=== PATIENT | male | born 1935 | race Hispanic/Latino ===

== ENCOUNTER 2017-01-14 19:58 | Emergency (ER) | payer MEDICARE, BC ==
[2017-01-14 19:58] VITALS: BMI 25.7
--- NOTE | 2017-01-14 21:07 | ED PDOC ---
Arrival/HPI - General Historian: Patient - History of Present Illness Time/Duration: Other (few days) Symptom Onset: Gradual Symptom Course: Unchanged Activities at Onset: Rest, Light Context: Home - General Chief Complaint: Flu-like Symptoms Time Seen by Provider: 01/14/17 20:17 - History of Present Illness Narrative History of Present Illness (Text): 01/14/17 20:20 Cali Fajardo is a 81 year old male, whose past medical history includes 1st degree AV Block, who presents to the ED complaining of fever and chills for the past few days. Patient also reports associated generalized body aches. Patient denies any chest pain, shortness of breath, nausea, vomiting, diarrhea, urinary symptoms, back pain, neck pain, headache, dizziness, or any other complaints. ( Buddy Ceron) Past Medical History - Provider Review Nursing Documentation Reviewed: Yes - Past History Past History: Non-Contributing (patient has first degree AV block and straight caths at home due to urinary retention) - Infectious Disease Hx of Infectious Diseases: None - Tetanus Immunization Tetanus Immunization: Unknown - Cardiac Hx Cardiac Disorders: Yes (1st degree AV block asymptomatic ) - Pulmonary Hx Respiratory Disorders: No - Neurological Hx Neurological Disorder: No - HEENT Hx HEENT Disorder: No - Renal Hx Renal Disorder: No - Endocrine/Metabolic Hx Endocrine Disorders: No - Hematological/Oncological Hx Blood Disorders: No - Integumentary Hx Dermatological Disorder: No - Musculoskeletal/Rheumatological Hx Musculoskeletal Disorders: No - Gastrointestinal Hx Gastrointestinal Disorders: No - Genitourinary/Gynecological Hx Genitourinary Disorders: Yes Other/Comment: patient self catherizes. states he urinates only through catherization due to having a large bladder. - Psychiatric Hx Psychophysiologic Disorder: No Hx Substance Use: No - Surgical History Hx Inguinal Hernia Repair: Yes - Anesthesia Hx Anesthesia: No - Suicidal Assessment Feels Threatened In Home Enviroment: No Family/Social History - Physician Review Nursing Documentation Reviewed: Yes Family/Social History: No Known Family HX Smoking Status: Former Smoker Hx Alcohol Use: Yes (SOCIAL) Hx Substance Use: No Hx Substance Use Treatment: No Allergies/Home Meds Allergies/Adverse Reactions: Allergies No Known Allergies Allergy (Verified 07/28/16 19:11) Home Medications: Home Meds Medication Instructions Recorded Confirmed Aspirin [Adult Low Dose Aspirin EC] 81 mg PO DAILY 01/14/17 01/14/17 Azithromycin [Zithromax] 250 mg PO DAILY 01/14/17 01/14/17 Levocetirizine Dihydrochloride 5 mg PO HS 01/14/17 01/14/17 [Xyzal] Review of Systems - Physician Review All systems were reviewed & negative as marked: Yes - Review of Systems Constitutional: Fevers, Other (+chills) Eyes: Normal ENT: Normal Respiratory: Normal. absent: SOB, Cough Cardiovascular: Normal. absent: Chest Pain Gastrointestinal: Normal. absent: Abdominal Pain, Diarrhea, Nausea, Vomiting Genitourinary Male: Normal. absent: Dysuria, Frequency, Hematuria, Urinary Output Changes Musculoskeletal: Other (+generalized body aches). absent: Back Pain, Neck Pain Skin: Normal. absent: Rash Neurological: Normal. absent: Headache, Dizziness Endocrine: Normal Hemo/Lymphatic: Normal Psychiatric: Normal Physical Exam Vital Signs Reviewed: Yes Temperature: Afebrile Blood Pressure: Normal Pulse: Regular Respiratory Rate: Normal Appearance: Positive for: Well-Appearing, Non-Toxic, Comfortable Pain Distress: None Mental Status: Positive for: Alert and Oriented X 3 - Systems Exam Head: Present: Atraumatic, Normocephalic Pupils: Present: PERRL Extroacular Muscles: Present: EOMI Conjunctiva: Present: Normal Mouth: Present: Moist Mucous Membranes Neck: Present: Normal Range of Motion Respiratory/Chest: Present: Clear to Auscultation, Good Air Exchange. No: Respiratory Distress, Accessory Muscle Use Cardiovascular: Present: Regular Rate and Rhythm, Normal S1, S2. No: Murmurs Abdomen: Present: Normal Bowel Sounds. No: Tenderness, Distention, Peritoneal Signs Back: Present: Normal Inspection Upper Extremity: Present: Normal Inspection. No: Cyanosis, Edema Lower Extremity: Present: Normal Inspection. No: Edema Neurological: Present: GCS=15, CN II-XII Intact, Speech Normal Skin: Present: Warm, Dry, Normal Color. 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 I also attempted to call the next of kin which is the son Mamadou Fajardo, no one answer again and I advised for urgent call back as this is serious findings. I will give the blood culture result critical finds and send out as certified mail which it will prepare by ER sales administrator aleena Krishnan 01/17/17 15:06 Pt. call back and i discussed about the blood culture, stated that he was back in the ER yesterday after the phone call and was clear to discharge home. He is feeling well now, on antibiotic, no fever or chills, eating and drinking well , currently following up with Dr. balderas and specialists as he was told yesterday. (Bruce Tolentino) 01/14/17 20:20 Impression: 81 year old male complaining of fever, chills, and body aches for the past few days. Differential Diagnosis include but are not limited to: viral syndrome Plan: -- EKG -- Chest X-ray -- Labs, VBG, blood cultures, rapid influenza -- Urinalysis, urine cultures -- Reassess and disposition Prior Visits: Notes and results from previous visits were reviewed. On 07/28/2016, pt was seen in the ED for generalized malaise, fever, and chills. Pt was d/c home. Progress Notes: Reviewed EKG, NSR at 79 bpm. Non-specific ST/T wave changes. 01/14/17 21:54 Reviewed radiology, Chest X-ray shows no active disease. 01/14/17 23:39 Reviewed labs, negative influenza. 01/15/17 00:30 On re-evaluation, the patient feels better and is in no acute distress. I have discussed the results and plan with the patient, who expresses understanding. Patient in agreement with plan to discharged home. Patient is stable for discharge. Patient was instructed to follow up with physician/clinic in 1-2 days or return if symptoms worsen or new concerning symptoms arise. (Buddy Ceron) - Lab Interpretations Microbiology Results: Microbiology Results 01/14/17 20:50 Blood Blood Culture - Preliminary Staphylococcus Sp Coag Neg 01/14/17 20:50 Blood Gram Stain - Final 01/14/17 21:10 Blood S.aureus & Coag-Neg Staph PNA FISH - Final 01/14/17 21:10 Blood Blood Culture - Preliminary Staphylococcus Sp Coag Neg 01/14/17 21:10 Blood Gram Stain - Final 01/14/17 21:00 Urine,Catheterized Urine Culture - Final No Growth (<1,000 CFU/ML) Lab Results: 01/14/17 21:00 01/14/17 21:00 Lab Results 01/14/17 21:20: Influenza Typ A,B (EIA) Negative for flu a/b 01/14/17 21:00: WBC 9.1, RBC 4.73, Hgb 15.2, Hct 43.6, MCV 92.2, MCH 32.1, MCHC 34.9, RDW 14.0, Plt Count 124, MPV 10.1, Gran % 84.5 H, Lymph % (Auto) 10.2 L, [place] % (Auto) 5.0, Eos % (Auto) 0.2 L, Baso % (Auto) 0.1, Gran # 7.71 H, Lymph # 0.9 L, [place] # 0.5, Eos # 0.0, Baso # 0.01, pO2 23 L, VBG pH 7.40, VBG pCO2 47.0, VBG HCO3 29.1 H, VBG Total CO2 30.5 H, VBG O2 Sat (Calc) 42.6, VBG Base Excess 3.5 H, VBG Potassium 4.7, Glucose 118 H, Lactate 1.2, FiO2 21.0, Sodium 133.0, Potassium 4.6, Chloride 99.0, Carbon Dioxide 26, Anion Gap 16, BUN 16, Creatinine 0.9, Est GFR ( Amer) > 60, Est GFR (Non-Af Amer) > 60, Random Glucose 112 H, Calcium 9.1, Phosphorus 2.1 L, Magnesium 1.9, Total Bilirubin 1.9 H, AST 31, ALT 20, Alkaline Phosphatase 70, Total Protein 7.3, Albumin 4.0, Globulin 3.3, Albumin/Globulin Ratio 1.2, Venous Blood Potassium 4.7 01/14/17 20:23: Urine Color Yellow, Urine Appearance Clear, Urine pH 6.0, Ur Specific [place] 1.015, Urine Protein Trace H, Urine Glucose (UA) Negative, Urine Ketones Trace H, Urine Blood Negative, Urine Nitrate Negative, Urine Bilirubin Negative, Urine Urobilinogen 0.2, Ur Leukocyte Esterase Negative, Urine RBC 0 - 2, Urine WBC 0 - 2, Ur Epithelial Cells None, Urine Bacteria Few - RAD Interpretation Narrative RAD Interpretations (Text): Chest X-ray shows no active disease. (Buddy Ceron) Radiology Orders: 01/14/17 20:23 CHEST PORTABLE [RAD] Stat - Medication Orders Current Medication Orders: Discontinued Medications Acetaminophen (Tylenol 325mg Tab) 650 mg PO STAT STA Stop: 01/14/17 23:03 Last Admin: 01/14/17 23:06 Dose: 650 MG MAR Pain/Vitals Document 01/14/17 23:06 RD (Rec: 01/14/17 23:06 RD [id number]) Pain Reassessment Is This A Pain ReAssessment? No Sleep Is patient sleeping during reassessment? No Presence of Pain Presence of Pain No Vitals Temperature (97.6 F-99.6 F) 102.1 F Temperature Source Oral Acetaminophen (Tylenol 325mg Tab) Confirm Administered Dose 650 mg .ROUTE .STK- MED ONE Stop: 01/14/17 23:07 Last Admin: 01/14/17 23:07 Dose: - Scribe Statement The provider has reviewed the documentation as recorded by the Scribe - Scribe Statement Belgica Enriquez (Buddy Ceron) Provider Attestation: All medical record entries made by the Scribe were at my direction and personally dictated by me. I have reviewed the chart and agree that the record accurately reflects my personal performance of the history, physical exam, medical decision making, and the department course for this patient. I have also personally directed, reviewed, and agree with the discharge instructions and disposition. (Buddy Ceron) Disposition/Present on Arrival - Present on Arrival Any Indicators Present on Arrival: No History of DVT/PE: No History of Uncontrolled Diabetes: No Urinary Catheter: No History of Decub. Ulcer: No History Surgical Site Infection Following: None - Disposition Have Diagnosis and Disposition been Completed?: Yes Disposition Time: 00:33 - Disposition Diagnosis: Viral syndrome Disposition: HOME/ ROUTINE Condition: GOOD Discharge Instructions (ExitCare): Viral Syndrome (ED)
[2017-01-14 21:24] LABS: ADD MANUAL DIFF? NO
[2017-01-14 21:28] LABS: VENOUS BLOOD GAS BASE EXCESS 3.5 mmol/L (0.0-2.0)
[2017-01-14 21:55] LABS: URINE BILIRUBIN NEGATIVE (NEGATIVE); URINE BLOOD NEGATIVE (NEGATIVE); URINE GLUCOSE (UA) NEGATIVE (NEGATIVE); URINE KETONE TRACE mg/dL (NEGATIVE); URINE LEUKOCYTE ESTERASE NEGATIVE Leu/uL (NEGATIVE); URINE PROTEIN TRACE mg/dL (<30 mg/dL); URINE UROBILINOGEN 0.2 E.U./dL (<1 E.U./dL)
[2017-01-14 22:01] LABS: URINE APPEARANCE CLEAR (CLEAR); URINE COLOR YELLOW (YELLOW)
[2017-01-14 22:03] LABS: BASO # 0.01 K/mm3 (0.0-2.0); BASO % 0.1 % (0.0-3.0); EOS % 0.2 % (1.5-5.0); GRAN # 7.71 (1.4-6.5); GRAN % 84.5 % (50.0-68.0); HEMATOCRIT 43.6 % (42.0-52.0); LYMPH # 0.9 (1.2-3.4); LYMPH % 10.2 % (22.0-35.0); MEAN CELL VOLUME 92.2 fL (80.0-105.0); MEAN CORPUSCULAR HEMOGLOBIN 32.1 pg (25.0-35.0); MEAN CORPUSCULAR HGB CONC 34.9 g/dl (31.0-37.0); MEAN PLATELET VOLUME 10.1 fl (7.0-11.0); MONO # 0.5 (0.1-0.6); PLATELET COUNT 124 10^3/uL (120.0-450.0); WHITE BLOOD COUNT 9.1 10^3/ul (4.5-11.0)
[2017-01-14 22:06] LABS: URINE BACTERIA FEW (NEG); URINE RBC 0 - 2 /hpf (0-2); URINE WBC 0 - 2 /hpf (0-6)
[2017-01-14 22:18] LABS: ALB/GLOB RATIO 1.2 (1.1-1.8); ALKALINE PHOSPHATASE 70 U/L (38-133); ALT/SGPT 20 U/L (7-56); AST/SGOT 31 U/L (15-59); BILIRUBIN,TOTAL 1.9 mg/dL (0.2-1.3); BLOOD UREA NITROGEN 16 mg/dL (7-21); CALCIUM 9.1 mg/dL (8.4-10.5); CARBON DIOXIDE 26 mmol/L (21-33); CHLORIDE 95 mmol/L (98-107); GFR AFRICAN-AMERICAN > 60; GLUCOSE,RANDOM 112 mg/dL (70-110); MAGNESIUM 1.9 mg/dL (1.7-2.2); PHOSPHOROUS 2.1 mg/dL (2.5-4.5); POTASSIUM 4.6 mmol/L (3.6-5.0); SODIUM 132 mmol/L (132-148); TOTAL PROTEIN 7.3 g/dL (5.8-8.3)
[2017-01-14 23:49] VITALS: RESP 17; TEMP 99.8
[2017-01-15 00:50] VITALS: BP 107/57; PULSE 78; O2SAT 94
--- NOTE | 2017-01-15 10:06 | CARD ---
APPROVED REPORT EKG Measurement Heart [id number] <Conclusion> Normal sinus rhythm APCs, new NSSTW changes
--- NOTE | 2017-01-15 12:02 | RAD ---
HISTORY: Sepsis Patient COMPARISON: Comparison is made to the previous study dated 07/28/2016 FINDINGS: LUNGS: Mild hyperinflation of the lungs is again noted. No evidence of new infiltrate or consolidation in the lungs. PLEURA: No significant pleural effusion identified, no pneumothorax apparent. CARDIOVASCULAR: Normal. OSSEOUS STRUCTURES: No significant abnormalities. VISUALIZED UPPER ABDOMEN: Normal. OTHER FINDINGS: None. IMPRESSION: No significant interval change compared to the previous exam.
== END 2017-01-15 00:48 | disposition home or self-care (01) ==
LOC: ED 19:58
DX: B34.9 Viral infection, unspecified (principal); I44.0 Atrioventricular block, first degree

== ENCOUNTER 2017-01-16 16:39 | Emergency (ER) | payer MEDICARE, BC ==
[2017-01-16 16:40] VITALS: BMI 25.7
[2017-01-16 17:02] VITALS: BP 109/75; RESP 18
[2017-01-16] MEDS ORDERED: Sodium Chloride 0.9% 1,000 ML IV STA (17:07)
[2017-01-16 17:10] VITALS: TEMP 99.1
[2017-01-16 17:12] LABS: ADD MANUAL DIFF? NO
[2017-01-16 17:19] LABS: BASO # 0.02 K/mm3 (0.0-2.0); BASO % 0.2 % (0.0-3.0); EOS # 0.1 (0.0-0.7); EOS % 1.1 % (1.5-5.0); GRAN # 5.91 (1.4-6.5); GRAN % 70.7 % (50.0-68.0); HEMATOCRIT 42.2 % (42.0-52.0); LYMPH # 1.8 (1.2-3.4); LYMPH % 21.7 % (22.0-35.0); MEAN CELL VOLUME 91.1 fL (80.0-105.0); MEAN CORPUSCULAR HEMOGLOBIN 31.5 pg (25.0-35.0); MEAN CORPUSCULAR HGB CONC 34.6 g/dl (31.0-37.0); MEAN PLATELET VOLUME 9.9 fl (7.0-11.0); MONO # 0.5 (0.1-0.6); MONO % 6.3 % (1.0-6.0); PLATELET COUNT 155 10^3/uL (120.0-450.0); WHITE BLOOD COUNT 8.4 10^3/ul (4.5-11.0)
[2017-01-16 17:30] LABS: ALB/GLOB RATIO 1.3 (1.1-1.8); ALKALINE PHOSPHATASE 68 U/L (38-133); ALT/SGPT 24 U/L (7-56); AST/SGOT 44 U/L (15-59); BILIRUBIN,TOTAL 1.5 mg/dL (0.2-1.3); BLOOD UREA NITROGEN 14 mg/dL (7-21); CALCIUM 8.8 mg/dL (8.4-10.5); CARBON DIOXIDE 24 mmol/L (21-33); CHLORIDE 98 mmol/L (98-107); GFR AFRICAN-AMERICAN > 60; GLUCOSE,RANDOM 164 mg/dL (70-110); MAGNESIUM 2.1 mg/dL (1.7-2.2); PHOSPHOROUS 2.1 mg/dL (2.5-4.5); POTASSIUM 3.5 mmol/L (3.6-5.0); SODIUM 133 mmol/L (132-148); TOTAL PROTEIN 7.2 g/dL (5.8-8.3)
--- NOTE | 2017-01-16 17:30 | ED PDOC ---
Arrival/HPI - General Chief Complaint: Palpitations Time Seen by Provider: 01/16/17 16:49 Historian: Patient - Critical Care Critical Care Minutes: 30 minutes - History of Present Illness Narrative History of Present Illness (Text): 01/16/17 17:21 81 yo male with no PMHx, presents to the ED from Dr. Neely office because of palpitations and fast heart rate. He states he had a cold since 5 days ago but got better after starting antibiotics that were prescribed to him. He's had a cough since that is not productive but he feels the congestion. He had a fever two days ago. He had no further complaints. He states he self catherizes for his urine and he's had no recent issues with this. He went to Dr. Neely' s office today just for a follow up but not because he wasn't feeling well. PMD: Dr. 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) - Infectious Disease Hx of Infectious Diseases: None - Tetanus Immunization Tetanus Immunization: Unknown - Cardiac Hx Cardiac Disorders: Yes (1st degree AV block asymptomatic ) - Pulmonary Hx Respiratory Disorders: No - Neurological Hx Neurological Disorder: No - HEENT Hx HEENT Disorder: No - Renal Hx Renal Disorder: No - Endocrine/Metabolic Hx Endocrine Disorders: No - Hematological/Oncological Hx Blood Disorders: No - Integumentary Hx Dermatological Disorder: No - Musculoskeletal/Rheumatological Hx Musculoskeletal Disorders: No - Gastrointestinal Hx Gastrointestinal Disorders: No - Genitourinary/Gynecological Hx Genitourinary Disorders: Yes Other/Comment: patient self catherizes. states he urinates only through catherization due to having a large bladder. - Psychiatric Hx Psychophysiologic Disorder: No Hx Substance Use: No - Surgical History Hx Inguinal Hernia Repair: Yes - Anesthesia Hx Anesthesia: No Hx Anesthesia Reactions: No Hx Malignant Hyperthermia: No - Suicidal Assessment Feels Threatened In Home Enviroment: No Family/Social History - Physician Review Nursing Documentation Reviewed: Yes Family/Social History: No Known Family HX Smoking Status: Former Smoker Hx Alcohol Use: Yes (SOCIAL) Hx Substance Use: No Hx Substance Use Treatment: No Allergies/Home Meds Allergies/Adverse Reactions: Allergies No Known Allergies Allergy (Verified 07/28/16 19:11) Home Medications: Home Meds Medication Instructions Recorded Confirmed Aspirin [Adult Low Dose Aspirin EC] 81 mg PO DAILY 01/14/17 01/14/17 Azithromycin [Zithromax] 250 mg PO DAILY 01/14/17 01/14/17 Levocetirizine Dihydrochloride 5 mg PO HS 01/14/17 01/14/17 [Xyzal] Review of Systems - Physician Review All systems were reviewed & negative as marked: Yes - Review of Systems Constitutional: Normal Eyes: Normal ENT: Normal Respiratory: Cough. absent: SOB, Sputum, Wheezing Cardiovascular: Palpitations. absent: Chest Pain, Edema, Calf Pain, COPE, Orthopnea, Syncope Gastrointestinal: Normal Genitourinary Male: Normal Musculoskeletal: Normal Skin: Normal Neurological: Normal Endocrine: Normal Hemo/Lymphatic: Normal Psychiatric: Normal Physical Exam Vital Signs Reviewed: Yes Vital Signs Temp Pulse Resp BP Pulse Ox 01/16/17 17:42 67 18 109/75 95 01/16/17 17:09 99.1 F 01/16/17 16:51 98.1 F 149 H 18 109/75 96 Temperature: Afebrile Blood Pressure: Normal Pulse: Tachycardic Respiratory Rate: Normal Appearance: Positive for: Well-Appearing, Non-Toxic, Comfortable Pain Distress: None Mental Status: Positive for: Alert and Oriented X 3 - Systems Exam Head: Present: Atraumatic, Normocephalic Pupils: Present: PERRL Extroacular Muscles: Present: EOMI Conjunctiva: Present: Normal Mouth: Present: Moist Mucous Membranes Neck: Present: Normal Range of Motion Respiratory/Chest: Present: Clear to Auscultation, Good Air Exchange. No: Respiratory Distress, Accessory Muscle Use Cardiovascular: Present: Regular Rate and Rhythm, Normal S1, S2. No: Murmurs Abdomen: Present: Normal Bowel Sounds. No: Tenderness, Distention, Peritoneal Signs Back: Present: Normal Inspection Upper Extremity: Present: Normal Inspection. No: Cyanosis, Edema Lower Extremity: Present: Normal Inspection. No: Edema Neurological: Present: GCS=15, CN II-XII Intact, Speech Normal Skin: Present: Warm, Dry, Normal Color. No: Rashes Psychiatric: Present: Alert, Oriented x 3, Normal Insight, Normal Concentration Medical Decision Making ED Course and Treatment: 01/16/17 17:54 81 yo male with palpitations and fast heart rate; cough r/o PNA r/o Sepsis -- Labs -- CXR, EKG -- IVF -- HR improved to 80's after NS 1 L bolus 01/16/17 18:58 Patient continues to have no symptoms but the cough. CXR negative. Pulse ox 95% on RA. EKG repeat is NSR at [address] elevations, nl intervals Discussed case with Dr. Neely. If troponin negative then patient can go home on Levaquin and f/u with him as an outpatient. Signed out to Dr. Hernandez to f/u troponin, reevaluate and disposition. - Lab Interpretations Lab Results: 01/16/17 16:56 01/16/17 16:56 Lab Results 01/16/17 17:30: pO2 148 H, VBG pH 7.46 H, VBG pCO2 34.0 L, VBG HCO3 24.2, VBG Total CO2 25.2, VBG O2 Sat (Calc) 99.5 H, VBG Base Excess 0.8, VBG Potassium 3.5 L, Sodium 135.0, Chloride 101.0, Glucose 165 H, Lactate 1.6, FiO2 21.0, Venous Blood Potassium 3.5 L 01/16/17 16:56: WBC 8.4, RBC 4.63, Hgb 14.6, Hct 42.2, MCV 91.1, MCH 31.5, MCHC 34.6, RDW 14.0, Plt Count 155, MPV 9.9, Gran % 70.7 H, Lymph % (Auto) 21.7 L, [place] % (Auto) 6.3 H, Eos % (Auto) 1.1 L, Baso % (Auto) 0.2, Gran # 5.91, Lymph # 1.8, [place] # 0.5, Eos # 0.1, Baso # 0.02, PT 10.9, INR 1.01, APTT 31.7 H, Sodium 133, Chloride 98, Potassium 3.5 L, Carbon Dioxide 24, Anion Gap 15, BUN 14, Creatinine 0.8, Est GFR ( Amer) > 60, Est GFR (Non-Af Amer) > 60, Random Glucose 164 H, Calcium 8.8, Phosphorus 2.1 L, Magnesium 2.1, Total Bilirubin 1.5 H, AST 44, ALT 24, Alkaline Phosphatase 68, Total Protein 7.2, Albumin 4.0, Globulin 3.2, Albumin/Globulin Ratio 1.3 - RAD Interpretation Radiology Orders: 01/16/17 17:09 CHEST PORTABLE [RAD] Stat - EKG Interpretation Interpreted by ED Physician: Yes (Sinus Tachy at 142) Type: 12 lead EKG - Medication Orders Current Medication Orders: Discontinued Medications Sodium Chloride (Sodium Chloride 0.9%) 1,000 mls @ 999 mls/hr IV .Q1H1M STA Stop: 01/16/17 18:07 Last Admin: 01/16/17 17:14 Dose: 999 MLS/HR eMAR Start Stop Document 01/16/17 17:14 SE (Rec: 01/16/17 17:14 SE [id number]) Intravenous Solution Start Date 01/16/17 Start Time 17:14 Levofloxacin (Levaquin) 750 mg PO STAT STA Stop: 01/16/17 18:58 Potassium Chloride (K-Dur 20 Meq Er Tab) 40 meq PO STAT STA Stop: 01/16/17 17:32 Last Admin: 01/16/17 18:16 Dose: 40 MEQ Disposition/Present on Arrival - Present on Arrival Any Indicators Present on Arrival: No History of DVT/PE: No History of Uncontrolled Diabetes: No Urinary Catheter: No History of Decub. Ulcer: No History Surgical Site Infection Following: None - Disposition Have Diagnosis and Disposition been Completed?: Yes Diagnosis: Tachycardia Disposition Time: 19:08 Condition: FAIR
[2017-01-16 17:31] LABS: INR 1.01 (0.93-1.08); PARTIAL THROMBOPLASTIN TIME 31.7 Seconds (23.7-30.8)
[2017-01-16] MEDS ORDERED: Potassium Chloride 20 mEq ER Tab PO STA (17:31)
[2017-01-16 17:35] LABS: VENOUS BLOOD GAS BASE EXCESS 0.8 mmol/L (0.0-2.0); VENOUS BLOOD PH 7.46 (7.32-7.43)
[2017-01-16 17:43] VITALS: PULSE 67; O2SAT 95
--- NOTE | 2017-01-16 17:58 | CARD ---
APPROVED REPORT EKG Measurement Heart [id number] [id number] <Conclusion> Sinus tachycardia Nonspecific ST abnormality Abnormal ECG
--- NOTE | 2017-01-16 18:55 | RAD ---
HISTORY: Sepsis Patient COMPARISON: 07/28/2016 FINDINGS: LUNGS: The lungs are well inflated and clear. PLEURA: No significant pleural effusion identified, no pneumothorax apparent. CARDIOVASCULAR: Normal. OSSEOUS STRUCTURES: No significant abnormalities. VISUALIZED UPPER ABDOMEN: Normal. OTHER FINDINGS: None. IMPRESSION: No active pulmonary disease.
[2017-01-16] MEDS ORDERED: levoFLOXacin 750 MG TAB PO STA (18:57)
--- NOTE | 2017-01-16 19:30 | ED PDOC ---
Physical Exam Vital Signs Reviewed: Yes Vital Signs Temp Pulse Resp BP Pulse Ox 01/16/17 17:42 67 18 109/75 95 01/16/17 17:09 99.1 F 72 19 137/75 98 01/16/17 16:51 98.1 F 149 H 18 109/75 96 Temperature: Afebrile Blood Pressure: Normal Pulse: Regular Respiratory Rate: Normal Appearance: Positive for: Well-Appearing, Non-Toxic, Comfortable Pain Distress: None Mental Status: Positive for: Alert and Oriented X 3 Medical Decision Making ED Course and Treatment: 01/16/17 19:00 Case signed out to me by Dr. Padilla, pending troponin, reevaluation and disposition. The patient is a 81 year old female who was sent into the emergency department from Dr. Neely office for chest palpitations and a fast heart rate. Physical examination show no acute findings. Patient Chest X-ray was negative and pulse oxygen at 95%. EKG showed NSR at [address] elevation and normal intervals.Pt.had been experiencing non productive cough. Case was discussed with Dr. eNely by Dr. Padilla, who stated if patient troponin is negative to discharge patient home on [facility] and he will follow up with the patient in his office. 01/16/17 19:43 Patient's Troponin is negative. On re-evaluation, the patient feels better and is in no acute distress. I have discussed the results and plan with the patient , who expresses understanding. Patient in agreement with plan to discharged home. Patient is stable for discharge. Patient was instructed to follow up with Dr. Neely in 1-2 days or return if symptoms worsen or new concerning symptoms arise. - Lab Interpretations Lab Results: 01/16/17 16:56 01/16/17 16:56 Lab Results 01/16/17 19:21: Urine Color Yellow, Urine Appearance Clear, Urine pH 6.0, Ur Specific [place] 1.010, Urine Protein Negative, Urine Glucose (UA) Negative, Urine Ketones Negative, Urine Blood Trace-lysed H, Urine Nitrate Negative, Urine Bilirubin Negative, Urine Urobilinogen 0.2, Ur Leukocyte Esterase Negative , Urine RBC 0 - 2, Urine WBC 0 - 2, Ur Epithelial Cells 0 - 2, Urine Bacteria Small 01/16/17 17:30: pO2 148 H, VBG pH 7.46 H, VBG pCO2 34.0 L, VBG HCO3 24.2, VBG Total CO2 25.2, VBG O2 Sat (Calc) 99.5 H, VBG Base Excess 0.8, VBG Potassium 3.5 L, Sodium 135.0, Chloride 101.0, Glucose 165 H, Lactate 1.6, FiO2 21.0, Venous Blood Potassium 3.5 L 01/16/17 16:56: WBC 8.4, RBC 4.63, Hgb 14.6, Hct 42.2, MCV 91.1, MCH 31.5, MCHC 34.6, RDW 14.0, Plt Count 155, MPV 9.9, Gran % 70.7 H, Lymph % (Auto) 21.7 L, [place] % (Auto) 6.3 H, Eos % (Auto) 1.1 L, Baso % (Auto) 0.2, Gran # 5.91, Lymph # 1.8, [place] # 0.5, Eos # 0.1, Baso # 0.02, PT 10.9, INR 1.01, APTT 31.7 H, Sodium 133, Chloride 98, Potassium 3.5 L, Carbon Dioxide 24, Anion Gap 15, BUN 14, Creatinine 0.8, Est GFR ( Amer) > 60, Est GFR (Non-Af Amer) > 60, Random Glucose 164 H, Calcium 8.8, Phosphorus 2.1 L, Magnesium 2.1, Total Bilirubin 1.5 H, AST 44, ALT 24, Alkaline Phosphatase 68, Troponin I < 0.01, Total Protein 7.2, Albumin 4.0, Globulin 3.2, Albumin/Globulin Ratio 1.3 I have reviewed the lab results: Yes - RAD Interpretation Radiology Orders: 01/16/17 17:09 CHEST PORTABLE [RAD] Stat - Medication Orders Current Medication Orders: Discontinued Medications Sodium Chloride (Sodium Chloride 0.9%) 1,000 mls @ 999 mls/hr IV .Q1H1M STA Stop: 01/16/17 18:07 Last Admin: 01/16/17 17:14 Dose: 999 MLS/HR eMAR Start Stop Document 01/16/17 17:14 SE (Rec: 01/16/17 17:14 [id number]) Intravenous Solution Start Date 01/16/17 Start Time 17:14 Levofloxacin (Levaquin) 750 mg PO STAT STA Stop: 01/16/17 18:58 Last Admin: 01/16/17 19:19 Dose: 750 MG Potassium Chloride (K-Dur 20 Meq Er Tab) 40 meq PO STAT STA Stop: 01/16/17 17:32 Last Admin: 01/16/17 18:16 Dose: 40 MEQ - Scribe Statement The provider has reviewed the documentation as recorded by the Scribe Mya Luis Provider Scribe Attestation: All medical record entries made by the Scribe were at my direction and personally dictated by me. I have reviewed the chart and agree that the record accurately reflects my personal performance of the history, physical exam, medical decision making, and the department course for this patient. I have also personally directed, reviewed, and agree with the discharge instructions and disposition. Disposition/Present on Arrival - Present on Arrival Any Indicators Present on Arrival: No History of DVT/PE: No History of Uncontrolled Diabetes: No Urinary Catheter: No History of Decub. Ulcer: No History Surgical Site Infection Following: None - Disposition Have Diagnosis and Disposition been Completed?: Yes Diagnosis: Bronchitis Disposition: HOME/ ROUTINE Disposition Time: 20:31 Patient Plan: Discharge Patient Problems: Current Active Problems Problem Status Diagnosed Tachycardia Acute Condition: GOOD Discharge Instructions (ExitCare): Acute Bronchitis (ED) Additional Instructions: Take meds as prescribed/follow up with this week.Any change/ worsening symptoms return to the emergency room. Prescriptions: Levofloxacin [Levaquin] 500 mg PO DAILY #7 tablet Referrals: Enrico Neely MD [Primary Care Provider] - Follow up with primary
[2017-01-16 20:00] LABS: URINE APPEARANCE CLEAR (CLEAR); URINE BILIRUBIN NEGATIVE (NEGATIVE); URINE BLOOD TRACE-LYSED (NEGATIVE); URINE COLOR YELLOW (YELLOW); URINE GLUCOSE (UA) NEGATIVE (NEGATIVE); URINE KETONE NEGATIVE (NEGATIVE); URINE LEUKOCYTE ESTERASE NEGATIVE Leu/uL (NEGATIVE); URINE PROTEIN NEGATIVE mg/dL (<30 mg/dL); URINE UROBILINOGEN 0.2 E.U./dL (<1 E.U./dL)
[2017-01-16 20:12] LABS: URINE BACTERIA SMALL (NEG); URINE EPITHELIAL CELLS 0 - 2 /hpf (0-5); URINE RBC 0 - 2 /hpf (0-2); URINE WBC 0 - 2 /hpf (0-6)
--- NOTE | 2017-01-17 20:10 | CARD ---
APPROVED REPORT EKG Measurement Heart [id number] <Conclusion> Normal sinus rhythm Normal ECG
== END 2017-01-16 20:43 | disposition home or self-care (01) ==
LOC: ED 16:39
DX: R00.0 Tachycardia, unspecified (principal); J40 Bronchitis, not specified as acute or chronic; Z87.891 Personal history of nicotine dependence
CPT/HCPCS: 71010; 80053; 81001; 82803; 83735; 84100; 84484; 85025; 85610; 85730; 87040; 87086; 93005; 99284; J7040

== ENCOUNTER 2018-01-07 23:41 | Emergency (ER) | payer MEDICARE, BC ==
[2018-01-07 23:42] VITALS: BMI 25.7
--- NOTE | 2018-01-08 01:24 | ED PDOC ---
Arrival/HPI - General Chief Complaint: Medical Clearance Time Seen by Provider: 01/08/18 00:51 Historian: Patient - History of Present Illness Narrative History of Present Illness (Text): 01/08/18 01:17 82 year old male, whose past medical history includes cervical herniated discs and hypertension, presents to the emergency department complaining of transient brief paresthesia that occurred this afternoon. He describes it as a tingling sensation to the left upper arm. Patient states he is currently asymptomatic. Patient states he felt fine otherwise. Patient denies any chest pain, any history of trauma, any history of exertional symptoms, numbness, fever, chills, chest pain, shortness of breath, nausea, vomiting, diarrhea, urinary symptoms, back pain, neck pain, headache, dizziness, or any other complaints. 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) - Infectious Disease Hx of Infectious Diseases: None - Tetanus Immunization Tetanus Immunization: Unknown - Cardiac Hx Cardiac Disorders: Yes (1st degree AV block asymptomatic ) - Pulmonary Hx Respiratory Disorders: No - Neurological Hx Neurological Disorder: No - HEENT Hx HEENT Disorder: No - Renal Hx Renal Disorder: No Other/Comment: pt has large bladder/self catheterizes - Endocrine/Metabolic Hx Endocrine Disorders: No - Hematological/Oncological Hx Blood Disorders: No - Integumentary Hx Dermatological Disorder: No - Musculoskeletal/Rheumatological Hx Musculoskeletal Disorders: No - Gastrointestinal Hx Gastrointestinal Disorders: No - Genitourinary/Gynecological Hx Genitourinary Disorders: Yes Other/Comment: patient self catherizes. states he urinates only through catherization due to having a large bladder. - Psychiatric Hx Psychophysiologic Disorder: No Hx Substance Use: No - Surgical History Hx Orthopedic Surgery: Yes (knee) - Anesthesia Hx Anesthesia: No - Suicidal Assessment Feels Threatened In Home Enviroment: No Family/Social History - Physician Review Nursing Documentation Reviewed: Yes Family/Social History: No Known Family HX Smoking Status: Former Smoker Hx Alcohol Use: Yes (SOCIAL) Frequency of alcohol use: Socially Hx Substance Use: No Hx Substance Use Treatment: No Allergies/Home Meds Allergies/Adverse Reactions: Allergies No Known Allergies Allergy (Verified 03/13/18 01:11) Home Medications: Home Meds Medication Instructions Recorded Confirmed Aspirin [Adult Low Dose Aspirin EC] 81 mg PO DAILY 01/14/17 01/08/18 Review of Systems - Physician Review All systems were reviewed & negative as marked: Yes - Review of Systems Constitutional: absent: Fevers, Other (Chills) Respiratory: absent: SOB Cardiovascular: absent: Chest Pain Gastrointestinal: absent: Diarrhea, Nausea, Vomiting Genitourinary Male: absent: Dysuria, Frequency, Hematuria Musculoskeletal: absent: Back Pain, Neck Pain Neurological: Other (brief paresthesia ). absent: Headache, Dizziness Physical Exam Vital Signs Reviewed: Yes Vital Signs Temp Pulse Resp BP Pulse Ox 01/08/18 03:07 98.5 F 61 18 137/79 98 01/08/18 01:07 98.8 F Temperature: Afebrile Blood Pressure: Normal Pulse: Regular Respiratory Rate: Normal Appearance: Positive for: Well-Appearing, Non-Toxic, Comfortable Pain Distress: None Mental Status: Positive for: Alert and Oriented X 3 - Systems Exam Head: Present: Atraumatic, Normocephalic Pupils: Present: PERRL Extroacular Muscles: Present: EOMI Conjunctiva: Present: Normal Mouth: Present: Moist Mucous Membranes Neck: Present: Normal Range of Motion. No: Meningeal Signs, MIDLINE TENDERNESS , Paraspinal Tenderness Respiratory/Chest: Present: Clear to Auscultation, Good Air Exchange. No: Respiratory Distress, Accessory Muscle Use Cardiovascular: Present: Regular Rate and Rhythm, Normal S1, S2. No: Murmurs Back: Present: Normal Inspection Upper Extremity: Present: Normal Inspection, Normal ROM, NORMAL PULSES, Neurovascularly Intact. No: Cyanosis, Edema, Tenderness, Swelling, Erythema Lower Extremity: Present: Normal Inspection. No: Edema Neurological: Present: GCS=15, CN II-XII Intact, Speech Normal, Motor Func Grossly Intact, Normal Sensory Function Skin: Present: Warm, Dry, Normal Color. No: Rashes Psychiatric: Present: Alert, Oriented x 3, Normal Insight, Normal Concentration Medical Decision Making ED Course and Treatment: 01/08/18 01:17 Impression: 82 year old male presents transient brief paresthesia that occurred this afternoon. Patient past medical history includes cervical herniated discs. Plan: -- EKG -- Labs -- Reassess and disposition Progress Notes: EKG shows Sinus bradycardia at 57 BPM with 1st AV Block. No acute changes. Interpreted by me. 01/08/18 02:59 On re-evaluation, patient feels better and is in no acute distress. I have discussed the results and plan with the patient, who expresses understanding. Patient in agreement with plan to be discharged home. Patient is stable for discharge. Patient was instructed to follow up with Neurologist or return if symptoms worsen or new concerning symptoms arise. - Lab Interpretations Lab Results: 01/08/18 01:25 01/08/18 01:25 Lab Results 01/08/18 01:25: WBC 8.8, RBC 4.64, Hgb 14.9, Hct 44.4, MCV 95.7, MCH 32.1, MCHC 33.6, RDW 13.7, Plt Count 143, MPV 10.4 01/08/18 01:25: Sodium 140, Potassium 4.5, Chloride 105, Carbon Dioxide 28, Anion Gap 12, BUN 13, Creatinine 0.7 L, Est GFR ( Amer) > 60, Est GFR ( Non-Af Amer) > 60, Random Glucose 98, Calcium 9.7, Total Bilirubin 1.6 H, AST 24 , ALT 25, Alkaline Phosphatase 67, Lactate Dehydrogenase 435, Total Creatine Kinase 58, Troponin I < 0.01, Total Protein 7.0, Albumin 4.1, Globulin 2.9, Albumin/Globulin Ratio 1.4 I have reviewed the lab results: Yes - EKG Interpretation Interpreted by ED Physician: Yes Type: 12 lead EKG - Scribe Statement The provider has reviewed the documentation as recorded by the Moribalverto Grant Provider Scribe Attestation: All medical record entries made by the Bhavana were at my direction and personally dictated by me. I have reviewed the chart and agree that the record accurately reflects my personal performance of the history, physical exam, medical decision making, and the department course for this patient. I have also personally directed, reviewed, and agree with the discharge instructions and disposition. Disposition/Present on Arrival - Present on Arrival Any Indicators Present on Arrival: No History of DVT/PE: No History of Uncontrolled Diabetes: No Urinary Catheter: No History of Decub. Ulcer: No History Surgical Site Infection Following: None - Disposition Have Diagnosis and Disposition been Completed?: Yes Diagnosis: Arm paresthesia, left, Cervical radiculopathy Disposition: HOME/ ROUTINE Disposition Time: 02:57 Patient Plan: Discharge Condition: GOOD Discharge Instructions (ExitCare): Radiculopathy (DC), Paresthesias (DC) Additional Instructions: Follow up with the neurologist this week Referrals: Kosta Wise MD [Staff Provider] - Follow up with primary Forms: DOOMORO ([place])
[2018-01-08 01:40] LABS: HEMOGLOBIN 14.9 g/dL (14.0-18.0); MEAN CELL VOLUME 95.7 fl (80.0-105.0); MEAN CORPUSCULAR HEMOGLOBIN 32.1 pg (25.0-35.0); MEAN CORPUSCULAR HGB CONC 33.6 g/dl (31.0-37.0); MEAN PLATELET VOLUME 10.4 fl (7.0-11.0); RBC 4.64 10^6/uL (3.5-6.1); RED CELL DISTRIBUTION WIDTH 13.7 % (11.5-14.5); WHITE BLOOD COUNT 8.8 10^3/ul (4.5-11.0)
[2018-01-08 02:31] LABS: ALB/GLOB RATIO 1.4 (1.1-1.8); ALBUMIN 4.1 g/dL (3.0-4.8); ALT/SGPT 25 U/L (7-56); AST/SGOT 24 U/L (17-59); BLOOD UREA NITROGEN 13 mg/dL (7-21); CALCIUM 9.7 mg/dL (8.4-10.5); GFR AFRICAN-AMERICAN > 60; GFR NON-AFRICAN AMERICAN > 60
[2018-01-08 02:42] LABS: TROPONIN I < 0.01 ng/mL
[2018-01-08 03:12] VITALS: BP 137/79; PULSE 61; RESP 18; TEMP 98.5; O2SAT 98
--- NOTE | 2018-01-08 10:25 | CARD ---
APPROVED REPORT EKG Measurement Heart [id number] <Conclusion> Sinus bradycardia with 1st degree AV block Otherwise normal ECG
== END 2018-01-08 03:06 | disposition home or self-care (01) ==
LOC: ED 23:41
DX: R20.2 Paresthesia of skin (principal); M54.12 Radiculopathy, cervical region; I10 Essential (primary) hypertension; Z87.891 Personal history of nicotine dependence

== ENCOUNTER 2018-02-15 18:58 | Emergency (ER) | payer MEDICARE, BC ==
[2018-02-15 18:59] VITALS: BMI 25.7
[2018-02-15 19:26] VITALS: RESP 18; TEMP 98.3
--- NOTE | 2018-02-15 20:13 | ED PDOC ---
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 Patient stated while sitting in his chair at home, he felt a new onset of palpitation. Patient made the decision to come to ED. He stated palpitation improved as soon as he go to the ED waiting room. He stated he felt his stomach was bloated, but after 1/2 hour it had improved, early today. Patient denies CP, SOB, abdominal pain, urinary symptoms, weakness, paresthesias, leg swelling, calf pain, recent illness, trauma, or abnormal gait. Dr. 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) - Infectious Disease Hx of Infectious Diseases: None - Tetanus Immunization Tetanus Immunization: Unknown - Cardiac Hx Cardiac Disorders: Yes (1st degree AV block asymptomatic ) - Pulmonary Hx Respiratory Disorders: No - Neurological Hx Neurological Disorder: No - HEENT Hx HEENT Disorder: No - Renal Hx Renal Disorder: No Other/Comment: pt has large bladder/self catheterizes - Endocrine/Metabolic Hx Endocrine Disorders: No - Hematological/Oncological Hx Blood Disorders: No - Integumentary Hx Dermatological Disorder: No - Musculoskeletal/Rheumatological Hx Musculoskeletal Disorders: No - Gastrointestinal Hx Gastrointestinal Disorders: No - Genitourinary/Gynecological Hx Genitourinary Disorders: Yes Other/Comment: patient self catherizes. states he urinates only through catherization due to having a large bladder. - Psychiatric Hx Psychophysiologic Disorder: No Hx Substance Use: No - Surgical History Hx Orthopedic Surgery: Yes (L knee) Other/Comment: hernia sx - Anesthesia Hx Anesthesia: No - Suicidal Assessment Feels Threatened In Home Enviroment: No Family/Social History - Physician Review Nursing Documentation Reviewed: Yes Family/Social History: Other (noncontributory) Smoking Status: Former Smoker Hx Alcohol Use: Yes (SOCIAL) Frequency of alcohol use: Socially Hx Substance Use: No Hx Substance Use Treatment: No Allergies/Home Meds Allergies/Adverse Reactions: Allergies No Known Allergies Allergy (Verified 01/08/18 01:11) Home Medications: Home Meds Medication Instructions Recorded Confirmed Aspirin [Adult Low Dose Aspirin EC] 81 mg PO DAILY 01/14/17 01/08/18 Review of Systems - Review of Systems Constitutional: Normal. absent: Fatigue, Weight Change, Fevers Eyes: Normal ENT: Normal. absent: Sore Throat Respiratory: Normal. absent: SOB, Cough, Wheezing Cardiovascular: Palpitations. absent: Chest Pain Gastrointestinal: Other (see hpi). absent: Abdominal Pain, Nausea, Vomiting Genitourinary Male: Normal Musculoskeletal: Normal Skin: Normal Neurological: Normal Endocrine: Normal Hemo/Lymphatic: Normal Psychiatric: Normal Physical Exam Vital Signs Temp Pulse Resp BP Pulse Ox 02/15/18 21:50 74 18 146/72 98 02/15/18 19:25 98.3 F 69 18 141/78 96 Temperature: Afebrile Blood Pressure: Normal Pulse: Regular Respiratory Rate: Normal Appearance: Positive for: Well-Appearing, Non-Toxic, Comfortable Pain Distress: None Mental Status: Positive for: Alert and Oriented X 3 - Systems Exam Head: Present: Atraumatic, Normocephalic Pupils: Present: PERRL Extroacular Muscles: Present: EOMI Conjunctiva: Present: Normal Mouth: Present: Moist Mucous Membranes Neck: Present: Normal Range of Motion Respiratory/Chest: Present: Clear to Auscultation, Good Air Exchange. No: Respiratory Distress, Accessory Muscle Use Cardiovascular: Present: Regular Rate and Rhythm, Normal S1, S2. No: Murmurs Abdomen: No: Tenderness, Distention, Peritoneal Signs, Rebound, Guarding Back: Present: Normal Inspection. No: CVA Tenderness Upper Extremity: Present: Normal Inspection, Normal ROM. No: Cyanosis, Edema Lower Extremity: Present: Normal Inspection, Normal ROM. No: Edema Neurological: Present: GCS=15, CN II-XII Intact, Speech Normal Skin: Present: Warm, Dry, Normal Color. No: Rashes Psychiatric: Present: Alert, Oriented x 3, Normal Insight, Normal Concentration Medical Decision Making ED Course and Treatment: 02/15/18 21:51 Leaving Against Medical Advice (AMA): This patient is choosing to leave against medical advice. I have personally explained to the patient that choosing to do so may result in permanent bodily harm or . I have discussed at great length that without further evaluation and monitoring there may be unforeseen circumstances and/or deterioration causing permanent bodily harm or as a result of their choice. The patient is alert, oriented, and shows the mental capacity to make clear decisions regarding the patients health care at this time. The patient continues to wish to leave against medical advice. In light of the patients decision to leave AMA, follow-up has been recommended and the patient is aware of the importance of following up as instructed. The patient has been advised that they should return to the ED immediately if they change their mind at any time, or if their condition begins to change or worsen in any way. Re-evaluation Time: 21:51 Reassessment Condition: Re-examined, Unchanged - Lab Interpretations Lab Results: 02/15/18 20:30 02/15/18 20:30 Lab Results 02/15/18 21:53: Urine Color yellow, Urine Appearance Clear, Urine pH 7.5, Ur Specific [place] 1.010, Urine Protein Negative, Urine Glucose (UA) Negative, Urine Ketones Negative, Urine Blood Negative, Urine Nitrate Negative, Urine Bilirubin Negative, Urine Urobilinogen 0.2, Ur Leukocyte Esterase Negative 02/15/18 20:30: Sodium 143, Potassium 3.9, Chloride 105, Carbon Dioxide 29, Anion Gap 13, BUN 16, Creatinine 0.8, Est GFR ( Amer) > 60, Est GFR (Non- Af Amer) > 60, Random Glucose 104, Calcium 9.3, Total Bilirubin 1.5 H, AST 31, ALT 28, Alkaline Phosphatase 60, Lactate Dehydrogenase 387, Total Creatine Kinase 54, Troponin I < 0.01, NT-Pro-B Natriuret Pep 51.6, Total Protein 6.8, Albumin 4.2, Globulin 2.6, Albumin/Globulin Ratio 1.6 02/15/18 20:30: PT 11.9, INR 1.04, APTT 30.4 02/15/18 20:30: WBC 9.5, RBC 4.72, Hgb 14.9, Hct 43.8, MCV 92.8, MCH 31.6, MCHC 34.0, RDW 13.6, Plt Count 163, MPV 9.6, Gran % 64.6, Lymph % (Auto) 24.7, [place] % (Auto) 7.6 H, Eos % (Auto) 2.9, Baso % (Auto) 0.2, Gran # 6.16, Lymph # (Auto ) 2.4, [place] # (Auto) 0.7 H, Eos # (Auto) 0.3, Baso # (Auto) 0.02 I have reviewed the lab results: Yes Interpretation: No clinic. lab abnormalty - RAD Interpretation Narrative RAD Interpretations (Text): Chest x-rays: No acute disease Radiology Orders: 02/15/18 20:21 CHEST PORTABLE [RAD] Stat Disposition/Present on Arrival - Present on Arrival Any Indicators Present on Arrival: No History of DVT/PE: No History of Uncontrolled Diabetes: No Urinary Catheter: No History of Decub. Ulcer: No History Surgical Site Infection Following: None - Disposition Have Diagnosis and Disposition been Completed?: Yes Diagnosis: Palpitation Disposition: AGAINST MEDICAL ADVICE Disposition Time: 21:51 Condition: UNKNOWN Discharge Instructions (ExitCare): Palpitations (DC) Additional Instructions: see Dr. Neely in 1-2 days, return to Emergency at any time or if symptoms returns Referrals: Enrico Neely MD [Primary Care Provider] - Follow up with primary Forms: [employer]alk[employer] (Bengali)
[2018-02-15 20:42] LABS: BASO # 0.02 K/mm3 (0.0-2.0); BASO % 0.2 % (0.0-3.0); EOS # 0.3 (0.0-0.7); EOS % 2.9 % (1.5-5.0); GRAN # 6.16 (1.4-6.5); GRAN % 64.6 % (50.0-68.0); HEMOGLOBIN 14.9 g/dL (14.0-18.0); LYMPH # 2.4 (1.2-3.4); LYMPH % 24.7 % (22.0-35.0); MEAN CELL VOLUME 92.8 fl (80.0-105.0); MEAN CORPUSCULAR HEMOGLOBIN 31.6 pg (25.0-35.0); MEAN PLATELET VOLUME 9.6 fl (7.0-11.0); MONO # 0.7 (0.1-0.6); MONO % 7.6 % (1.0-6.0); RBC 4.72 10^6/uL (3.5-6.1); RED CELL DISTRIBUTION WIDTH 13.6 % (11.5-14.5); WHITE BLOOD COUNT 9.5 10^3/ul (4.5-11.0)
[2018-02-15 20:52] LABS: ALB/GLOB RATIO 1.6 (1.1-1.8); ALBUMIN 4.2 g/dL (3.0-4.8); ALT/SGPT 28 U/L (7-56); AST/SGOT 31 U/L (17-59); BLOOD UREA NITROGEN 16 mg/dL (7-21); CALCIUM 9.3 mg/dL (8.4-10.5); GFR AFRICAN-AMERICAN > 60; GFR NON-AFRICAN AMERICAN > 60; INR 1.04 (0.93-1.08); PARTIAL THROMBOPLASTIN TIME 30.4 Seconds (25.1-36.5); PROTHROMBIN TIME 11.9 SECONDS (9.4-12.5)
[2018-02-15 21:04] LABS: B-TYPE NATRIURETIC PEPTIDE 51.6 pg/mL (0-450); TROPONIN I < 0.01 ng/mL
[2018-02-15 21:56] LABS: PH,URINE 7.5 (4.7-8.0); URINE BILIRUBIN NEGATIVE (NEGATIVE); URINE GLUCOSE (UA) NEGATIVE (NEGATIVE); URINE LEUKOCYTE ESTERASE NEGATIVE Leu/uL (NEGATIVE); URINE PROTEIN NEGATIVE mg/dL (<30 mg/dL); URINE UROBILINOGEN 0.2 E.U./dL (<1 E.U./dL)
[2018-02-15 22:22] LABS: URINE APPEARANCE CLEAR (CLEAR); URINE BLOOD NEGATIVE (NEGATIVE)
[2018-02-15 23:26] VITALS: BP 146/72; PULSE 74; O2SAT 98
--- NOTE | 2018-02-16 13:16 | RAD ---
HISTORY: palpitation COMPARISON: Comparison chest the the [id number] FINDINGS: LUNGS: No active pulmonary disease. PLEURA: No significant pleural effusion identified, no pneumothorax apparent. CARDIOVASCULAR: Normal. OSSEOUS STRUCTURES: No significant abnormalities. VISUALIZED UPPER ABDOMEN: Normal. OTHER FINDINGS: None. IMPRESSION: No active disease.
--- NOTE | 2018-02-16 23:49 | CARD ---
APPROVED REPORT EKG Measurement Heart [id number] <Conclusion> Sinus rhythm with 1st degree AV block Otherwise normal ECG
== END 2018-02-15 21:50 | disposition left against medical advice (07) ==
LOC: ED 18:58
DX: R00.2 Palpitations (principal); I44.0 Atrioventricular block, first degree